=== PATIENT | female | born 1970 | race Caucasian/White ===

== ENCOUNTER 2020-03-24 16:43 | Outpatient (CLI) | payer BC, SELFPAY ==
--- NOTE | ~2020-03-24 | MM_ITS ---
EXAMINATION: MM screening [facility] BI w lou HISTORY: Screening mammogram TECHNIQUE: Craniocaudal and mediolateral oblique 3-D tomosynthesis images were obtained and synthetic 2-D images were generated. CAD analysis was submitted and interpreted. COMPARISON: 12/31/2018, 10/16/2017, 09/19/2016 BREAST PARENCHYMAL COMPOSITION: The breasts are heterogeneously dense, which may obscure small masses . FINDINGS: There is no evidence of suspicious mass, calcification, or architectural distortion to sugg est malignancy in either breast. There has been no suspicious interval change. IMPRESSION: 1. No mammographic evidence of malignancy. 2. Recommend routine screening mammography in one year. BI-RADS Category 1: Negative Reviewed, dictated and finalized at location A.
== END 2020-03-24 16:44 | disposition home or self-care (01) ==
PROVIDERS: PCP Family Medicine; Visit Provider Family Medicine
DX: Z12.31 Encounter for screening mammogram for malignant neoplasm of breast (principal)
CPT/HCPCS: 77063; 77067

== ENCOUNTER 2020-04-26 13:23 | Emergency (ER) | payer BC, SELFPAY ==
[2020-04-26 13:33] VITALS: BP 118/66; PULSE 78; RESP 20; TEMP 37.2; O2SAT 100
--- NOTE | 2020-04-26 13:37 | ED.SKABFB ---
HPI - Skin/Abscess/Foreign Bdy General Chief complaint: Wound/Laceration Stated complaint: left ring finger lac Time Seen by Provider: 04/26/20 13:38 Source: patient, family and RN notes reviewed History of Present Illness HPI narrative: Patient is a 49-year-old female who presents the urgent care with complaints of a laceration to the left ring finger. Patient states that she did it with a clean kitchen knife just prior to arrival. Patient denies of any other acute complaints or injuries. No acute distress noted. Patient aware of the plan of care. Some parts of this dictation were generated by voice recognition software and may contain typographical and/or grammatical inaccuracies. Related Data Home Medications Medication Instructions Recorded Confirmed levothyroxine [Synthroid] 04/26/20 omeprazole 04/26/20 sumatriptan succinate mg PO 04/26/20 tapentadol [Nucynta ER] mg PO 04/26/20 topiramate 04/26/20 trazodone 04/26/20 venlafaxine mg 04/26/20 Allergies Allergy/AdvReac Type Severity Reaction Status Date / Time amitriptyline Allergy Other Verified 04/26/20 14:00 [id number] AdvReac Back Pain Verified 04/26/20 14:00 [From Emgality Pen] Review of Systems Review of Systems: Narrative: CONSTITUTIONAL: Denies fever, chills, or sweats. EYES: Denies visual changes, redness, or discharge. ENT: Denies rhinorrhea, congestion, sore throat, or otalgia. CARDIOVASCULAR: Denies chest pain, palpitations, or edema. RESPIRATORY: Denies cough or dyspnea. GASTROINTESTINAL: Denies abdominal pain, nausea, vomiting, or diarrhea. GENITOURINARY: Denies dysuria or hematuria. SKIN: Reports of a laceration to the left ring finger MUSCULOSKELETAL: Denies back pain, joint pain, or myalgia. NEUROLOGIC: Denies headache, numbness, or weakness. All other systems reviewed are negative, except as documented in HPI. [facility] Family History Family History (System 01/20/20 @ 08:37 by Rosalee Foy) Grandparent Diabetes mellitus Family history of lupus erythematosus Family history of glaucoma Malignant neoplasm of prostate Other No family history of cardiovascular disease Social History Social History (System 01/20/20 @ 08:37 by Rosalee Stoll Smoking status: Never smoker Alcohol intake: never Comments At the time of my signature, I reviewed and agree with the nursing past medical, surgical, social, and family history. There is no relevant family history pertinent to the patient complaint. Exam Narrative: Exam Narrative: GENERAL: This is a well-nourished, well-developed patient, in no apparent distress. HEAD: normocephalic, atraumatic. EYES: PERRL. Sclera clear/white. Vision is grossly intact. EARS: External ears normal NOSE: External nose normal with no obvious nasal discharge, nares without redness, no rhinorrhea. THROAT: Mucous membranes moist NECK: Neck supple SKIN: 2 cm C-shaped laceration noted to the radial aspect of the left ring finger NEURO: awake, alert, and oriented to person, place and time. There were no obvious focal neurologic abnormalities. EXTREMITIES: No clubbing, cyanosis, or edema. Course Vital Signs Vital signs: Vital Signs Temperature 99.0 F 04/26/20 13:33 Pulse Rate 78 04/26/20 13:33 Respiratory Rate 04/26/20 13:33 Blood Pressure 118/66 04/26/20 13:33 Pulse Oximetry 100 04/26/20 13:33 Temperature 99.0 F 04/26/20 13:33 Pulse Rate 78 04/26/20 13:33 Respiratory Rate 04/26/20 13:33 Blood Pressure 118/66 04/26/20 13:33 Pulse Oximetry 100 04/26/20 13:33 Reviewed Procedures Laceration Laceration 1: Site: upper extremity (Ring finger) Side (If applicable): left Description: other (C shaped) Depth: simple, single layer Local Anesthetic: lidocaine 1% Amount of anesthesia used (mL): 1 Pre-repair: irrigated and irrigated extensively (Technique care and normal saline) ====== Skin L
== END 2020-04-26 14:16 | disposition home or self-care (01) ==
PROVIDERS: Emergency Provider Nurse Practitioner Family; PCP Family Medicine
DX: S61.215A Laceration without foreign body of left ring finger without damage to nail, initial encounter (principal); W26.0XXA Contact with knife, initial encounter; Z85.841 Personal history of malignant neoplasm of brain
CPT/HCPCS: 12001; 99212; G0463

== ENCOUNTER 2022-01-18 18:08 | Emergency (ER) | payer BC, SELFPAY ==
[2022-01-18 18:20] VITALS: BP 121/77; PULSE 71; RESP 16; TEMP 36.8; O2SAT 100
--- NOTE | 2022-01-18 18:42 | ED.EYEPROB ---
HPI - Eye Problem General Chief complaint: Eye Problems Stated complaint: eye problems Time Seen by Provider: 01/18/22 18:42 Source: patient Mode of arrival: ambulatory Limitations: no limitations History of Present Illness HPI Narrative: 51 yo F presents with c/o pain, clear drainage, redness, light sensitivity to R eye for 2 days. Denies injury. concerned she has pink eye. Recently attended a wedding. Also reports congestion, sinus pressure starting yesterday. Recently treated with abx for sinus infection. Denies fever/chills. No cough. No known covid exposure. All systems reviewed and negative except as noted above. Related Data Home Medications Medication Instructions Recorded Confirmed levothyroxine 75 mcg tablet 75 mcg PO 04/26/20 (Synthroid) omeprazole 20 mg capsule,delayed 20 mg PO 04/26/20 release sumatriptan succinate 100 mg tablet 100 mg PO 04/26/20 tapentadol 150 mg tablet,extended 150 mg PO 04/26/20 release,12 hr (Nucynta ER) topiramate 50 mg tablet 50 mg PO 04/26/20 trazodone 100 mg tablet 100 mg PO 04/26/20 venlafaxine 75 mg tablet 75 mg PO 04/26/20 carbamazepine 200 mg 200 mg PO 01/18/22 capsule,extended release [id number] furosemide 20 mg tablet 20 mg PO 01/18/22 potassium chloride 10 mEq 10 meq PO 01/18/22 tablet,extended release Allergies Allergy/AdvReac Type Severity Reaction Status Date / Time amitriptyline Allergy Other Verified 01/18/22 18:37 [id number] AdvReac Back Pain Verified 01/18/22 18:37 [From Emgality Pen] Review of Systems Review of Systems: CONSTITUTIONAL: Denies fever, chills, or sweats. EYES: Reports redness, light sensitivity, clear discharge. ENT: Reports rhinorrhea, congestion, sinus pressure. Denies sore throat, or otalgia. CARDIOVASCULAR: Denies chest pain, palpitations, or edema. RESPIRATORY: Denies cough or dyspnea. GASTROINTESTINAL: Denies abdominal pain, nausea, vomiting, or diarrhea. GENITOURINARY: Denies dysuria or hematuria. SKIN: Denies rash or itching. MUSCULOSKELETAL: Denies back pain, joint pain, or myalgia. NEUROLOGIC: Denies headache, numbness, or weakness. PSYCHIATRIC: Denies anxiety or depression. All other systems reviewed are negative, except as documented in HPI. [facility] Family History Family History (System 01/20/20 @ 08:37 by Rosalee Foy) Grandparent Diabetes mellitus Family history of lupus erythematosus Family history of glaucoma Malignant neoplasm of prostate Other No family history of cardiovascular disease Social History Social History (System 01/20/20 @ 08:37 by Rosalee Foy) Smoking status: Never smoker Alcohol intake: never Comments At time of signature, agree with nursing past medical, surgical, social and family history. There is no relevant family history pertinent to the presenting complaint. Exam Narrative: GENERAL: This is a well-nourished, well-developed patient, in no apparent distress. HEAD: normocephalic, atraumatic. EYES: PERRL. Sclera mildly erythematous. Topical anesthetic was instilled with good anesthesia using 1gtt of opth anesthetic agent (tetracaine). Fluorescein stain of the R eye was performed with uptake of dye showing small corneal abrasion. NO FB, ulcer or dendritic lesions. Upper lid was everted and no FB or lesions were noted. NO Swathi sign. Normal saline irrigation eye solution was performed and the patient tolerated the procedure well, no adverse reaction or complications. Noted intraocular pressure readings. EARS: External ears normal, auditory canals clear and without drainage, TMs normal without perforation. Hearing grossly intact. NOSE: External nose normal with clear nasal drainage. No erythema or swelling to nares. No sinus tenderness. THROAT: Mucous membranes moist, clear postnasal drainage. NECK: Neck supple, non-tender without lymphadenopathy, masses or thyromegaly. CARDIOVASCULAR: Regular rate and rhythm without murmurs, gallops, or rubs.
== END 2022-01-18 19:30 | disposition home or self-care (01) ==
PROVIDERS: Emergency Provider Nurse Practitioner Family; PCP Family Medicine
DX: S05.01XA Injury of conjunctiva and corneal abrasion without foreign body, right eye, initial encounter (principal); X58.XXXA Exposure to other specified factors, initial encounter; J01.90 Acute sinusitis, unspecified; Z20.822 Contact with and (suspected) exposure to COVID-19; Z85.841 Personal history of malignant neoplasm of brain
CPT/HCPCS: 87426; 99213; A9270; C9803; G0463

== ENCOUNTER 2024-02-08 15:08 | Emergency (ER) | payer BC, SELFPAY ==
--- NOTE | 2024-02-08 15:08 | ED.FEMALEGU ---
HPI - Female Genitourinary General Chief complaint: Urogenital-Female Stated complaint: Urinary Problem Time Seen by Provider: 02/08/24 15:40 Source: patient and RN notes reviewed Mode of arrival: ambulatory Limitations: no limitations History of Present Illness HPI Narrative: 53-year-old female presents with concern for right flank pain that started yesterday. She denies injury, trauma. She denies fever, chills, body aches, sweats, nausea, vomiting. She reports she commonly has frequency, urgency. She denies dysuria. She denies abdominal pain MD elicited complaint: UTI Related Data Home Medications Medication Instructions Recorded Confirmed levothyroxine 75 mcg tablet 75 mcg PO 04/26/20 (Synthroid) omeprazole 20 mg capsule,delayed 20 mg PO 04/26/20 release sumatriptan succinate 100 mg tablet 100 mg PO 04/26/20 tapentadol 150 mg tablet,extended 150 mg PO 04/26/20 release,12 hr (Nucynta ER) topiramate 50 mg tablet 50 mg PO 04/26/20 trazodone 100 mg tablet 100 mg PO 04/26/20 venlafaxine 75 mg tablet 75 mg PO 04/26/20 carbamazepine 200 mg 200 mg PO 01/18/22 capsule,extended release [id number] furosemide 20 mg tablet 20 mg PO 01/18/22 potassium chloride 10 mEq 10 meq PO 01/18/22 tablet,extended release Allergies Allergy/AdvReac Type Severity Reaction Status Date / Time amitriptyline Allergy Other Verified 01/18/22 18:37 [id number] AdvReac Back Pain Verified 01/18/22 18:37 [From Emgality Pen] Review of Systems Review of Systems: CONSTITUTIONAL: Denies malaise, chills, sweats, or fever. CARDIOVASCULAR: Denies chest pain, palpitations, or edema. RESPIRATORY: Denies cough or dyspnea. GASTROINTESTINAL: Denies abdominal pain, nausea, vomiting, diarrhea GENITOURINARY: Denies dysuria, frequency, urgency, suprapubic pressure. Denies hematuria. Reports right flank pain SKIN: Denies rash or itching. MUSCULOSKELETAL: Denies myalgia. All systems reviewed & are unremarkable except as noted in HPI and below PMFSH Family History Family History (System 01/20/20 @ 08:37 by Rosalee J. Foy) Grandparent Diabetes mellitus Family history of lupus erythematosus Family history of glaucoma Malignant neoplasm of prostate Other No family history of cardiovascular disease Social History Social History (System 01/20/20 @ 08:37 by Rosalee Foy) Smoking status: Never smoker Alcohol intake: never Comments At time of signature, agree with nursing past medical, surgical, social and family history. There is no relevant family history pertinent to the presenting complaint Exam Narrative: GENERAL: Well-appearing, well-nourished, and in no acute distress. HEAD: Normocephalic. EYES: PERRLA, conjunctivae clear. NECK: Supple. No lymphadenopathy CHEST: Clear to auscultation. No respiratory distress. HEART: Regular rate and rhythm. ABDOMEN: Soft, nontender upon palpation, nondistended, normal active bowel sounds, no palpable or pulsatile masses, no guarding. No CVA tenderness SKIN: Warm, dry, no rash. NEURO: Alert and oriented x3. PSYCH: Normal mood and affect Course Course Emergency Course: I advised patient that she may have a kidney stone, I cannot diagnose that from the Urgent Care, she would not like to go to the emergency room at this time, she prefers to treat for potential UTI and will go to the emergency room for symptoms worsen or do not improve. Patient is aware of diagnosis, understands and agrees to treatment plan. Anticipatory guidance given. Patient agrees to follow-up as directed and is aware of reasons to seek care at the emergency department. Portions of this record may have been created with voice recognition software Level of Care: Express Care Visit Vital Signs Vital signs: Reviewed. MDM - Female Genitourinary MDM Narrative Medical decision making narrative: Exam findings and UA show no acute concerns or changes; patient is non-toxic
[2024-02-08 15:23] VITALS: BP 111/74; PULSE 87; RESP 16; TEMP 37.5; O2SAT 98
[2024-02-08 15:48] LABS: EDUAAPPEAR Clear; EDUABILI Negative; EDUABLOOD Negative; EDUACOLOR1 Yellow; EDUAGLUCOSE Negative; EDUAKETONE Negative; EDUALEUKO 1+; EDUANITRATE Negative; EDUAPROTEIN Negative
== END 2024-02-08 15:49 | disposition home or self-care (01) ==
PROVIDERS: Emergency Provider Nurse Practitioner; PCP Family Medicine
DX: R10.9 Unspecified abdominal pain (principal); Z85.841 Personal history of malignant neoplasm of brain
CPT/HCPCS: 81003; 87077; 87086; 87186; 99213; G0463